=== PATIENT | male | born 1985 ===

== ENCOUNTER → 2020-04-12 | Day surgery (SDC) | payer OTHER ==
[~2020-04-12] VITALS: Ht 180.3 cm; Wt 68.0 kg
[2020-04-12 11:47] VITALS: BP 128/71
== END | disposition home or self-care (01) | DRG 355 ==
LOC: ORM 08:00
PROVIDERS: ATTEND Surgery
PROC: 0WQF0ZZ Repair Abdominal Wall, Open Approach (ICD-10-PCS; principal; 2020-04-12)
DX: K42.9 Umbilical hernia without obstruction or gangrene (principal); Z20.822 Contact with and (suspected) exposure to COVID-19
CPT/HCPCS: J0131